=== PATIENT | female | born 1995 | race Caucasian/White ===

== ENCOUNTER 2021-05-23 13:38 | Inpatient (IN) ==
[2021-05-23] MEDS ORDERED: Ringers Solution, Lactated 1,000 ML IVC SCH (14:30)
[2021-05-23] MEDS ORDERED: Lidocaine 1% 20 ML MDV INFILT PRN (14:30)
[2021-05-23] MEDS ORDERED: Ondansetron 4 MG/2 ML VIAL IVP PRN ×2 (14:30→14:55)
[2021-05-23] MEDS ORDERED: Metoclopramide 10 MG/2 ML VIAL IVP PRN (14:30)
[2021-05-23] MEDS ORDERED: *HR* Nalbuphine 10 MG/ML AMPUL IV PRN (14:30)
[2021-05-23] MEDS ORDERED: Famotidine 20 MG/2 ML VIAL IVP PRN (14:30)
[2021-05-23] MEDS ORDERED: *HR* FentaNYL (PF) 100 MCG/2 ML VIAL EP ONE (14:55)
[2021-05-23] MEDS ORDERED: EPHEDrine 50 MG/ML VIAL IVP PRN (14:55)
[2021-05-23] MEDS ORDERED: Ropivacaine/PF 0.2% 20 ML VIAL EP ONE (14:55)
[2021-05-23] MEDS ORDERED: Naloxone 0.4 MG/ML INJ IVP PRN (14:55)
[2021-05-23] MEDS ORDERED: Epidural Premix (fent/bupiv) 110 ML EP SCH (15:00)
[2021-05-23 15:46] LABS: Basophils % 0.3 %; Eosinophils % 0.4 %; Hematocrit 38.7 % (35.3-44.9); Hemoglobin 12.4 g/dL (11.5-15.4); Immature Granulocytes % 1.1 % (0-4); Lymphocytes # 1.5 K/mcL (0.6-4.6); Lymphocytes % 14.1 %; Mean Corpuscular Hemoglobin 25.9 pg (28.0-33.3); Mean Platelet Volume 11.3 fL (9.4-12.4); Monocytes # 0.6 K/mcL (0.0-1.3); Monocytes % 5.4 %; Neutrophils # 8.6 K/mcL (1.6-8.9); Platelet Count 199 K/mcL (140-400); Red Blood Count 4.78 M/mcL (3.82-4.97); Red Cell Distribution Width 16.4 % (11.5-14.5); Segmented Neutrophils % 78.7 %; White Blood Count 10.9 K/mcL (4.3-11.1)
[2021-05-23] MEDS: miSOPROStoL 25 MCG TABLET VG PRN ×2 (15:51→19:51)
[2021-05-23 16:10] LABS: Influenza A PCR Negative (Negative); Influenza B PCR Negative (Negative); Resp. Syncytial Virus PCR Negative (Negative)
[2021-05-23 16:16] LABS: SARS-CoV-2 by PCR (In House) Negative (Negative)
[2021-05-23 16:46] LABS: Amphetamine Screen,Urine Negative ng/mL (Cutoff=1000); Barbiturate Screen,Urine Negative ng/mL (Cutoff=200); Benzodiazepines Screen,Urine Negative ng/mL (Cutoff=200); Cannabinoid Screen,Urine Negative ng/mL (Cutoff = 50); Cocaine Screen,Urine Negative ng/mL (Cutoff= 300); Opiate Screen,Urine Negative ng/mL (Cutoff=300); Phencyclidine Screen,Urine Negative ng/mL (Cutoff=25)
[2021-05-24] MEDS ORDERED: Oxytocin 20 units/ LR 1000 mL 20 UNIT/1,000 ML BAG IVC SCH ×2 (00:15→15:33)
[2021-05-24] MEDS ORDERED: CeFAZolin Syr 3,000MG/30 ML 3,000 MG/30 ML SYRINGE IVPB ONE (10:55)
[2021-05-24] MEDS ORDERED: *HR* Morphine Sulfate/PF 10 MG/10 ML AMPUL ONE (11:04)
[2021-05-24] MEDS ORDERED: *HR* FentaNYL (PF) 100 MCG/2 ML VIAL ONE (11:04)
[2021-05-24] MEDS ORDERED: Acetaminophen IV 1,000 MG/100 ML BAG IVPB ONE (11:05)
[2021-05-24] MEDS ORDERED: Ondansetron 4 MG/2 ML VIAL ONE (11:05)
[2021-05-24] MEDS ORDERED: Ringers Solution, Lactated 1,000 ML ONE ×2 (11:50→22:57)
[2021-05-24] MEDS ORDERED: Ketorolac 30 MG/ML VIAL ONE (12:25)
[2021-05-24] MEDS ORDERED: Simethicone 80 MG TAB.CHEW PO PRN (15:33)
[2021-05-24] MEDS ORDERED: Metoclopramide 10 MG/2 ML VIAL IVP PRN (15:33)
[2021-05-24] MEDS ORDERED: Ondansetron 4 MG/2 ML VIAL IVP PRN (15:33)
[2021-05-24] MEDS: Ibuprofen 600 MG TABLET PO SCH (17:57)
[2021-05-24] MEDS: Acetaminophen 325 MG TABLET PO SCH (17:58)
[2021-05-24] MEDS ORDERED: Ringers Solution, Lactated 500 ML IVC ONE (22:55)
[2021-05-25] MEDS: Ibuprofen 600 MG TABLET PO SCH ×2 (00:32→06:11)
[2021-05-25] MEDS: Acetaminophen 325 MG TABLET PO SCH ×2 (00:33→06:11)
[2021-05-25] MEDS ORDERED: *HR* Enoxaparin 80 MG/0.8 ML SYRINGE SQ SCH (01:00)
[2021-05-25] MEDS ORDERED: Famotidine 20 MG TABLET PO SCH (07:30)
[2021-05-25 07:51] VITALS: BP 123/66; PULSE 86; TEMP 97.7; O2SAT 98
[2021-05-25] MEDS ORDERED: Prenatal Vit/FA 1 EACH TABLET PO SCH (09:00)
[2021-05-25] MEDS ORDERED: PARoxetine 20 MG TABLET PO SCH (09:00)
== END 2021-05-25 14:39 | disposition home or self-care (01) | DRG 788 ==
LOC: 1NENULAB 13:38 → 1NENUOBS 05-24 15:18
PROVIDERS: ADMIT Registered Nurse; ATTEND Registered Nurse